=== PATIENT | female | born 1980 | race Caucasian/White ===

== ENCOUNTER 2016-04-13 18:11 | Emergency (ER) ==
[2016-04-13 18:13] VITALS: BP 136/83; TEMP 97.5; BMI 18.7
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
[2016-04-13] MEDS ORDERED: NORCO 5-325 PO STA (18:32)
--- NOTE | 2016-04-13 19:11 | CT ---
Exam: CT cervical spine without contrast Clinical indication: Neck pain with point tenderness posteriorly at the C4 area. Injury. TECHNIQUE: Axial unenhanced CT images from the upper thoracic spine through the skull base were obt ained followed by coronal and sagittal reformats. Findings: The alignment of the cervical spine is within normal limits. There are no fractures, dislocations or other significant bony abnormalities. The disc spaces are well maintained. The visualized soft tissues and pulmonary parenchyma are unrem arkable. Impression: No acute cervical fracture.
== END 2016-04-13 19:15 | disposition home or self-care (01) ==
LOC: ED 18:11
DX: S16.1XXA Strain of muscle, fascia and tendon at neck level, initial encounter (principal); Y04.8XXA Assault by other bodily force, initial encounter; F17.210 Nicotine dependence, cigarettes, uncomplicated
CPT/HCPCS: 99283

== ENCOUNTER 2016-09-02 18:52 | Emergency (ER) ==
[2016-09-02 18:57] VITALS: BP 131/82; TEMP 98.2; BMI 18.1
--- NOTE | 2016-09-02 19:34 | ED.PDOC ---
General ED Provider: Dr. BAO GUILLEN Chief Complaint: Tooth Problem Stated Complaint: Patient is a 35 year old female who states that she has pain on the right upper molars, not responding to OTC meds. She could not see the dentsit day. Also gums are swollen in the same area. Time Seen by Physician: 19:32 Mode of Arrival: Walk-In Information Source: Patient Exam Limitations: No limitations Primary Care Provider: ANDRIY RAMIREZ Nursing and Triage Documentation Reviewed and Agree: Yes Review of Systems - Review Of Systems Constitutional: Reports: No symptoms Eyes: Reports: No symptoms Ears, Nose, Mouth, Throat: Reports: Mouth pain, Loose teeth Respiratory: Reports: No symptoms Cardiac: Reports: No symptoms GI: Reports: No symptoms : Reports: No symptoms Musculoskeletal: Reports: No symptoms Skin: Reports: No symptoms Neurological: Reports: No symptoms Endocrine: Reports: No symptoms Hematologic/Lymphatic: Reports: No symptoms All Other Systems: Reviewed and Negative Past Medical History - Past Medical History Previously Healthy: Yes Endocrine: Reports: None Cardiovascular: Reports: None Respiratory: Reports: None Hematological: Reports: None Gastrointestinal: Reports: None Genitourinary: Reports: None Neuro/Psych: Reports: Other (ADHD) Musculoskeletal: Reports: None Cancer: Reports: None Last Menstrual Period: 08/24/16 - Surgical History General Surgical History: Reports: Cholecystectomy, Other (lymph nodes) - Family History Family History: Reports: Unknown - Social History Smoking Status: Current every day smoker, Light tobacco smoker Hx Substance Use: No Alcohol Screening: None - Immunizations Tetanus Shot up to Date: Yes Physical Exam - Physical Exam Appearance: Ill-appearing, Well-nourished, Thin Ill-appearing: Mild Pain Distress: Moderate Eyes: RONNA, EOMI, Conjunctiva clear ENT: Ears normal, Nose normal, Oropharynx normal Neck: Supple Respiratory: Airway patent, Breath sounds clear, Breath sounds equal, Respirations nonlabored Cardiovascular: Pulses normal, No rub, No murmur, Tachycardia GI/: Soft, Nontender, No masses, Bowel sounds normal, No Organomegaly Musculoskeletal: Normal strength, ROM intact, No edema, No calf tenderness Skin: Warm, Dry, Normal color Neurological: Sensation intact, Motor intact, Alert, Oriented Psychiatric: Affect appropriate, Mood appropriate Critical Care Note - Critical Care Note Total Time (mins): 0 Course - Course Vital Signs: Temp Pulse Resp BP Pulse Ox 09/02/16 18:53 98.2 F 109 H 16 131/82 99 Departure - Departure Time of Disposition: 19:32 Disposition: HOME SELF-CARE Discharge Problem: Toothache Instructions: Toothache (ED) Condition: Stable Pt referred to PMD for follow-up: Yes Additional Instructions: Take medications as prescribe Follow up with your dentist in 3 days. Prescriptions: Amoxicillin [Amoxil] 500 mg PO TID #30 capsule Tramadol HCl [Ultram] 50 mg PO Q6H PRN #14 tablet PRN Reason: Severe Pain Allergies/Adverse Reactions: Allergies No Known Allergies Allergy (Verified 09/02/16 18:57) Home Medications: Ambulatory Orders Methylphenidate HCl [Ritalin] 10 mg PO TID 05/19/14 Meloxicam [Mobic] 7.5 mg PO DAILY 08/04/14 Cyclobenzaprine HCl [Flexeril] 10 mg PO DAILY 11/10/14 Amoxicillin [Amoxil] 500 mg PO TID #30 capsule 09/02/16 Fluoxetine HCl [Prozac] 20 mg PO DAILY 09/02/16 Tramadol HCl [Ultram] 50 mg PO Q6H PRN #14 tablet 09/02/16 Transfer Form Completed: Yes Disposition Discussed With: Patient
== END 2016-09-02 19:45 | disposition home or self-care (01) ==
LOC: ED 18:52
DX: K08.89 Other specified disorders of teeth and supporting structures (principal); F17.210 Nicotine dependence, cigarettes, uncomplicated
CPT/HCPCS: 99282

== ENCOUNTER 2016-10-15 19:34 | Emergency (ER) ==
[2016-10-15 19:34] VITALS: BMI 18.1
[2016-10-15 19:40] VITALS: BP 125/82; TEMP 98.4
--- NOTE | 2016-10-15 19:57 | ED.PDOC ---
General ED Provider: Dr. BAO GUILELN Chief Complaint: Tooth Problem Stated Complaint: Patient is a 35 year old female who comes to the ER With complains of pain on the right upper and lower jaw. She states that she has been to the dentsit at [place] who placed her on Amoxil -antibiotics which she is completing today. Has been here recently for similar complaints. Time Seen by Physician: 19:55 Mode of Arrival: Walk-In Information Source: Patient Exam Limitations: No limitations Primary Care Provider: ANDRIY RAMIREZ Nursing and Triage Documentation Reviewed and Agree: Yes EENT Complaint Exam - Dental/Oral Complaint/Exam Mechanism of Injury: No known trauma Onset/Duration: 1 week Symptoms Are: Still present Timing: Constant Initial Severity: Moderate Current Severity: Moderate Location: left Upper and lower molar Character: Reports: Aching, Throbbing Aggravating: Reports: None Alleviating: Reports: None Associated Signs and Symptoms: Reports: Swelling. Denies: Discharge, Fever, Foul odor, Foul taste in mouth Related History: Reports: Similar episode, Previous tooth problem Cardiac Risk Factors: Reports: None Dental/Oral Surgical History: Reports: None Tooth Findings: Present: Gross decay, Gross caries Cervical Lymphadenopathy Present: No Facial Swelling Present: No Bleeding Present: No Oropharynx Findings: Absent: Clots, Active bleeding Septal Hematoma: No Foreign Body Present: No Dysphagia Present: No Drooling Present: No Asymmetrical Tonsillar Swelling Present: No Uvula Midline: No Liudmila-tonsillar Fluctuence: No Trismus Present: No Palatal Petechiae Present: No Scarlatinaform Rash Present: No Lesions: Absent: Lip, Gums, Tongue, Buccal Mucosa, Pharynx Exanthem: Absent: Lip, Gums, Tongue, Buccal Mucosa, Pharynx Differential Diagnoses: Dental Abcess, Dental Caries, Fractured Tooth Review of Systems - Review Of Systems Constitutional: Reports: Loss of appetite Eyes: Reports: No symptoms Ears, Nose, Mouth, Throat: Reports: Mouth pain. Denies: Mouth swelling, Loose teeth Respiratory: Reports: No symptoms Cardiac: Reports: No symptoms GI: Reports: No symptoms : Reports: No symptoms Musculoskeletal: Reports: No symptoms Skin: Reports: No symptoms Neurological: Reports: No symptoms Endocrine: Reports: No symptoms Hematologic/Lymphatic: Reports: No symptoms All Other Systems: Reviewed and Negative Past Medical History - Past Medical History Previously Healthy: Yes Endocrine: Reports: None Cardiovascular: Reports: None Respiratory: Reports: None Hematological: Reports: None Gastrointestinal: Reports: None Genitourinary: Reports: None Neuro/Psych: Reports: Other (ADHD) Musculoskeletal: Reports: None Cancer: Reports: None Last Menstrual Period: current Other Pertinent Past Medical History: Dental decay - Surgical History General Surgical History: Reports: Cholecystectomy, Other (lymph nodes) - Family History Family History: Reports: Unknown - Social History Smoking Status: Current every day smoker Hx Substance Use: No Alcohol Screening: Occasionally - Immunizations Tetanus Shot up to Date: Yes Physical Exam - Physical Exam Appearance: Ill-appearing, Thin Ill-appearing: None Pain Distress: Moderate Neck: Supple Respiratory: Airway patent, Breath sounds clear, Breath sounds equal, Respirations nonlabored Cardiovascular: RRR, Pulses normal, No rub, No murmur Skin: Warm, Dry Neurological: Alert, Oriented Psychiatric: Anxious Critical Care Note - Critical Care Note Total Time (mins): 0 Course - Course Vital Signs: Temp Pulse Resp BP Pulse Ox 10/15/16 19:34 98.4 F 111 H 20 125/82 98 Departure - Departure Time of Disposition: 19:55 Disposition: HOME SELF-CARE Discharge Problem: Toothache Instructions: Toothache (ED) Condition: Fair Pt referred to PMD for follow-up: Yes Additional Instructions: Take medications as prescribed Follow up with PCP in 3 day for medications refill Follow up with your dentist in on week Prescriptions: Clindamycin HCl [Cleocin HCl] 300 mg PO TID #30 capsule Ibuprofen [Motrin] 600 mg PO Q6H PRN #30 tablet PRN Reason: Analgesia Allergies/Adverse Reactions: Allergies No Known Allergies Allergy (Verified 10/15/16 19:40) Home Medications: Ambulatory Orders Methylphenidate HCl [Ritalin] 10 mg PO TID 05/19/14 Meloxicam [Mobic] 7.5 mg PO DAILY 08/04/14 Cyclobenzaprine HCl [Flexeril] 10 mg PO DAILY 11/10/14 Amoxicillin [Amoxil] 500 mg PO TID #30 capsule 09/02/16 Fluoxetine HCl [Prozac] 20 mg PO DAILY 09/02/16 Clindamycin HCl [Cleocin HCl] 300 mg PO TID #30 capsule 10/15/16 Ibuprofen [Motrin] 600 mg PO Q6H PRN #30 tablet 10/15/16 Disposition Discussed With: Patient
== END 2016-10-15 20:08 | disposition home or self-care (01) ==
LOC: ED 19:34
DX: K08.89 Other specified disorders of teeth and supporting structures (principal); K02.7 Dental root caries; F17.210 Nicotine dependence, cigarettes, uncomplicated
CPT/HCPCS: 99282

== ENCOUNTER 2017-07-24 12:09 | Emergency (ER) ==
[2017-07-24 12:09] VITALS: BMI 18.1
[2017-07-24 12:18] VITALS: BP 138/89; TEMP 97.1
[2017-07-24] MEDS ORDERED: TORADOL PO STA (12:59)
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
--- NOTE | 2017-07-24 13:26 | CT ---
EXAM: CT scan of the facial bones without contrast HISTORY: Trauma TECHNIQUE: Helical imaging of the facial bones was performed without contrast. Axial images and cor onal and sagittal reconstructions were provided for interpretation. FINDINGS: The orbital floor, inferior orbital rim appear intact. The medial and lateral de [place] ro[place] of th e orbits are intact. No acute fractures are seen within the nasal bones and maxilla. The zygomatic arch, mandible appear intact. There is mucosal thickening seen within the ethmoid air cells and front al sinus. The remainder of the paranasal sinuses and mastoid air cells are clear. IMPRESSION: No acute fracture dislocation seen within the facial bones.
[2017-07-24] MEDS ORDERED: NORCO 7.5-325 PO STA (13:31)
== END 2017-07-24 15:05 | disposition home or self-care (01) ==
LOC: ED 12:09
DX: K08.89 Other specified disorders of teeth and supporting structures (principal); W22.8XXA Striking against or struck by other objects, initial encounter; F17.210 Nicotine dependence, cigarettes, uncomplicated
CPT/HCPCS: 96372; 99283

== ENCOUNTER 2017-11-30 14:14 | Emergency (ER) ==
[2017-11-30 14:24] VITALS: BP 112/76; TEMP 98.4; BMI 19.4
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
[2017-11-30] MEDS ORDERED: TORADOL IM STA (15:42)
--- NOTE | 2017-11-30 16:59 | DI ---
EXAM: Two views of the chest. History: Left chest wall pain. Comparison: Chest radiograph 11/10/2014, left rib series 11/30/2017 Findings: Heart size is normal. No focal consolidation. No appreciable pleural fluid and no pneumo thorax. Acute osseous abnormalities. Impression: No acute cardiopulmonary process
--- NOTE | 2017-11-30 17:00 | DI ---
EXAM: Four views of the left ribs. History: Left-sided rib trauma. Findings: Left lung is free of consolidation. No left pleural effusion and no left-sided pneumothor ax. No rib fractures are seen. Impression: Unremarkable left rib series
== END 2017-11-30 17:15 | disposition home or self-care (01) ==
LOC: ED 14:14
DX: S20.212A Contusion of left front wall of thorax, initial encounter (principal); W18.09XA Striking against other object with subsequent fall, initial encounter; F17.210 Nicotine dependence, cigarettes, uncomplicated
CPT/HCPCS: 96372; 99283

== ENCOUNTER 2018-09-04 08:20 | Emergency (ER) ==
[2018-09-04 08:24] VITALS: BP 132/78; TEMP 97.8; BMI 19.3
--- NOTE | 2018-09-04 08:30 | ED.PDOC ---
General ED Provider: Dr. SALENA BARKLEY Chief Complaint: Hand Pain/Injury Stated Complaint: FX L 4th digit; out of pain meds - sees clinic tomorrow. Time Seen by Physician: 08:25 Mode of Arrival: Walk-In Information Source: Patient Exam Limitations: No limitations Nursing and Triage Documentation Reviewed and Agree: Yes Does patient meet sepsis criteria?: No System Inflammatory Response Syndrome: Not Applicable Sepsis Protocol: For patient's 13 years and over: Temp is 96.8 and below OR 101 and greater Pulse >90 BPM Resp >20/minute Acutely Altered Mental Status Are patient's symptoms suggestive of a new infection, such as: -Pneumonia -Skin, Soft Tissue -Endocarditis -UTI -Bone, Joint Infection -Implantable Device -Acute Abdominal Infection -Wound Infection -Meningitis -Blood Stream Catheter Infection -Unknown Review of Systems - Review Of Systems Constitutional: Reports: Other (Pain L 5th digit; not wearing splint (got wet last night)) Respiratory: Reports: No symptoms All Other Systems: Reviewed and Negative Past Medical History - Past Medical History Previously Healthy: Yes Endocrine: Reports: None Cardiovascular: Reports: None Respiratory: Reports: None Hematological: Reports: None Gastrointestinal: Reports: None Genitourinary: Reports: None Neuro/Psych: Reports: Other (ADHD) Musculoskeletal: Reports: None, Back Pain, Other (lt chest wall and lateral shc) Cancer: Reports: None Last Menstrual Period: 08/26/18 Other Pertinent Past Medical History: Dental decay - Surgical History General Surgical History: Reports: Cholecystectomy, Other (lymph nodes) - Family History Family History: Reports: Unknown - Social History Smoking Status: Current every day smoker Hx Substance Use: No Alcohol Screening: Occasionally Physical Exam - Physical Exam Appearance: Well-appearing Ill-appearing: None Pain Distress: Mild (When not trying to use L hand/family intervention specialist) Eyes: RONNA Respiratory: Airway patent, Respirations nonlabored Musculoskeletal: Normal strength Skin: Warm, Dry, Normal color (except slight ecchymosis L hand 5th MCP/digit) Neurological: Sensation intact, Motor intact, Alert, Oriented Psychiatric: Affect appropriate, Mood appropriate Procedures - Splinting Location: L 5th digit Pre-Made Type: Metal Splint: metal palm/left 5th digit Re-Evaluation - Re-Evaluation Time of Re-Evaluation: 08:48 Status: Improved Vital Signs Stable: Yes Appearance: NAD Critical Care Note - Critical Care Note Total Time (mins): 10 Course - Course Orders, Labs, Meds: Orders Category Date Time Status Splint [ED SPLINT APPLICATION] .ONCE EMERGENCY 09/04/18 08:43 Active FINGER(S), LEFT MIN 2V Stat RADS 09/04/18 08:29 Taken Vital Signs: Temp Pulse Resp BP Pulse Ox 09/04/18 08:20 97.8 F 108 H 16 132/78 99 Departure - Departure Time of Disposition: 08:50 Disposition: HOME SELF-CARE Discharge Problem: Fracture of finger of left hand Qualifiers: Encounter type: subsequent encounter Finger: little finger Fracture type: closed Phalanx: proximal Fracture alignment: displaced Fracture healing: with delayed healing Qualified Code(s): S62.617G - Displaced fracture of proximal phalanx of left little finger, subsequent encounter for fracture with delayed healing Instructions: Finger Fracture (ED) Condition: Stable Pt referred to PMD for follow-up: Yes (Must keet appointment tomorrow) IPMP verified?: Yes (Continuing pain medication) Additional Instructions: Use pain medications as prescribed. Must keep either the splint placed today or the original ortho splint placed which was removed after getting wet at home. Must use either one or the other splint to prevent further injury or increased pain and fracture must be definitively addressed by orthopedics. Prescriptions: Hydrocodone Bit/Acetaminophen [[place] 7.5-325] 1 each PO Q6HR #14 tablet Allergies/Adverse Reactions: Allergies No Known Allergies Allergy (Verified 09/04/18 08:24) Home Medications: Ambulatory Orders Hydrocodone Bit/Acetaminophen [[place] 7.5-325] 1 each PO Q6HR #14 tablet Disposition Discussed With: Patient
--- NOTE | 2018-09-04 08:49 | DI ---
EXAM: Three views of the left fifth finger COMPARISON: None HISTORY: Trauma and pain FINDINGS: There is a moderately angulated and mildly displaced fracture of the base of the proximal phalanx of the left fifth finger. No other fractures are identified. Soft tissues are unremarkable. Joint spaces are well preserved. There are no unexpected radiodensities. There is no significant d egenerative change. IMPRESSION: Left fifth finger fracture as described.
== END 2018-09-04 09:03 | disposition home or self-care (01) ==
LOC: ED 08:20
DX: S62.617G Displaced fracture of proximal phalanx of left little finger, subsequent encounter for fracture with delayed healing (principal); F17.210 Nicotine dependence, cigarettes, uncomplicated
CPT/HCPCS: 99283

== ENCOUNTER 2018-09-13 | Emergency (ER) | END 2018-09-13 21:30 | disposition home or self-care (01) | CPT/HCPCS: 99282 ==